=== PATIENT | female | born 1940 | race Hispanic/Latino ===

== ENCOUNTER 2023-11-10 14:06 | Emergency (ER) | payer OTHER, MEDICARE ==
[~2023-11-10] VITALS: Ht 160 cm; Wt 92.5 kg
[2023-11-10 16:27] LABS: BASOPHILS # (AUTO) 0.02 K/uL (0.00-0.20); BASOPHILS % (AUTO) 0.1 % (0.0-5.0); HEMATOCRIT 47.9 % (36-48); IMMATURE GRANULOCYTE ABSOLUTE 0.11 K/uL (0-1); LYMPHOCYTES # (AUTO) 1.3 K/uL (1.0-4.8); LYMPHOCYTES % (AUTO) 8.5 % (21.0-51.0); MEAN CORPUSCULAR HEMOGLOBIN 30.8 pg (27.0-33.0); MEAN CORPUSCULAR HGB CONC 33.6 g/dL (32.0-36.0); MEAN CORPUSCULAR VOLUME 91.8 fL (79-99); MONOCYTES # (AUTO) 0.2 K/uL (0.1-1.0); MONOCYTES % (AUTO) 1.5 % (3.0-13.0); NEUTROPHILS # (AUTO) 13.9 K/uL (1.8-7.7); NEUTROPHILS % (AUTO) 89.2 % (40.0-77.0); PLATELET COUNT (AUTO) 323 K/uL (130-400); RED BLOOD CELL COUNT(AUTO) 5.22 MIL/uL (4.00-5.50); RED CELL DISTRIBUTION WIDTH 13.5 % (11.0-15.5); WHITE BLOOD COUNT (AUTO) 15.6 K/uL (4.8-10.8)
[2023-11-10 16:33] LABS: INR 0.96 (0.85-1.15); PROTHROMBIN TIME 11.2 SEC (9.6-11.6)
[2023-11-10 16:34] LABS: PARTIAL THROMBOPLASTIN TIME 20.2 SEC (26.3-35.5)
[2023-11-10 17:08] LABS: B-TYPE NATRIURETIC PEPTIDE 73 pg/mL (0-100)
[2023-11-10 17:25] LABS: POTASSIUM 5.1 mmol/L (3.5-5.1)
[2023-11-10 17:29] LABS: BILIRUBIN,TOTAL 0.6 mg/dL (0.2-1.0); TOTAL PROTEIN, SERUM 7.2 g/dL (6.0-8.3)
[2023-11-10 17:36] LABS: APPEARANCE,URINE CLEAR (CLEAR); BILIRUBIN,URINE NEGATIVE (NEGATIVE); COLOR,URINE COLORLESS (YELLOW); GLUCOSE, URINE (UA) NEGATIVE (NEGATIVE); KETONES,URINE NEGATIVE (NEGATIVE); LEUKOCYTE ESTERASE ,URINE 75 Leu/uL (NEGATIVE); NITRATE,URINE NEGATIVE (NEGATIVE); OCCULT BLOOD,URINE NEGATIVE (NEGATIVE); PROTEIN,URINE NEGATIVE (NEGATIVE); UROBILINOGEN,URINE 0.2 mg/dL (0.2-1.0)
[2023-11-10] MEDS ORDERED: IOHEXOL-350 75 ML VIAL IV ONE (17:37)
[2023-11-10 17:39] LABS: ADD UA MICROSCOPIC YES
[2023-11-10 17:41] LABS: BACTERIA,URINE RARE /HPF (None Seen); SQUAMOUS EPITHELIAL CELL,UR RARE /HPF (0-2)
[2023-11-10 18:49] VITALS: O2SAT 97
[2023-11-10] MEDS ORDERED: GADOTERATE MEGLUMINE 10 MMOL/20 ML VIAL IV ONE (20:34)
[2023-11-10 21:28] VITALS: BP 150/64; PULSE 78; RESP 18
== END 2023-11-10 21:47 | disposition short-term general hospital (02) ==
LOC: EDH 14:06
DX: I63.9 Cerebral infarction, unspecified (principal); D32.0 Benign neoplasm of cerebral meninges; I10 Essential (primary) hypertension; H40.9 Unspecified glaucoma; F41.9 Anxiety disorder, unspecified; Z90.49 Acquired absence of other specified parts of digestive tract; Z98.890 Other specified postprocedural states; Z79.899 Other long term (current) drug therapy
CPT/HCPCS: 99291; 70450; 70553; 72125; 74177; 82550; 83721; 84484; 80053; 83880; 85025; 85610; 85730; 87088; 81001; 36415; 71045; 99292; 93005 ×2; Q9967; A9575